=== PATIENT | female | born 1990 | race African-American/Black ===

== ENCOUNTER 2017-12-21 23:58 | Emergency (ER) | payer MEDICAID ==
--- NOTE | 2017-12-22 00:50 | ER Document Report ---
ED General - General Chief Complaint: Probable Seizure Stated Complaint: POSSIBLE SEIZURES,AMS Time Seen by Provider: 12/22/17 00:09 Notes: Patient is a 27-year-old female presents with complaint of possible seizure. She says she went to [employer] to buy any case for her phone. She said she last thing she remembers is looking at the phone cases. She then woke up with the paramedics. Paramedics said that she did appear postictal and that she was confused when they first got to her. Paramedics said there is maybe 1 pertinence who witnessed her on the floor with some tremor but is unclear whether not she was having a true seizure. Patient has never had anything like this happen before. She is otherwise healthy and has no chronic medical problems. No recent infections. Patient denies any chest pain or shortness of breath or headaches before or after the episode. Past Medical History - Social History Smoking Status: Never Smoker Frequency of alcohol use: None Drug Abuse: None Family History: Reviewed & Not Pertinent Patient has suicidal ideation: No Patient has homicidal ideation: No Renal/ Medical History: Denies: Hx Peritoneal Dialysis Review of Systems - Review of Systems Notes: My Normal Review Basic REVIEW OF SYSTEMS: CONSTITUTIONAL : Denies fever, chills, or sweats. Denies recent illness. EENT: Denies eye, ear, throat, or mouth pain or symptoms. Denies nasal or sinus congestion. CARDIOVASCULAR: Denies chest pain. RESPIRATORY: Denies cough, cold, or chest congestion. Denies shortness of breath, difficulty breathing, or wheezing. GASTROINTESTINAL: Denies abdominal pain. Denies nausea, vomiting, or diarrhea. Denies constipation. Last BM: GENITOURINARY: Denies difficulty urinating, painful urination, burning, frequency, or blood in urine. MUSCULOSKELETAL: Denies neck or back pain or joint pain or swelling. SKIN: Denies rash or skin lesions. NEUROLOGICAL: Loss of consciousness with possible seizure. Denies headache. Denies weakness or paralysis or loss of use of either side. Denies problems with gait or speech. Denies sensory or motor loss. ALL OTHER SYSTEMS REVIEWED AND NEGATIVE. Physical Exam - Vital signs Vitals: Temp Pulse Resp BP Pulse Ox 98.8 F 113 H 20 132/101 H 93 12/22/17 00:01 12/22/17 00:01 12/22/17 00:01 12/22/17 00:01 12/22/17 00:01 - Notes Notes: General Appearance: Well nourished, alert, cooperative, no acute distress, no obvious discomfort. Well-appearing. Vitals: reviewed, See vital signs table. Head: no swelling or tenderness to the head Eyes: PERRL, EOMI, Conjuctiva clear Mouth: No decreasd moisture. No tongue biting. Throat: No tonsillar inflammation, No airway obstruction, Neck: Supple, no neck tenderness, No thyromegaly Lungs: No wheezing, No rales, No rhonci, No accessory muscle use, good air exchange bilaterally. Heart: Tachycardic rate, Regular rythm, No murmur, no rub Abdomen: Normal BS, soft, No rigidity, No abdominal tenderness, No guarding, no rebound, no abdominal masses, no organomegaly Extremities: strength 5/5 in all extremities, good pulses in all extremities, no swelling or tenderness in the extremities, no edema. Skin: warm, dry, appropriate color, no rash Neuro: speech clear, oriented x 3, normal affect, responds appropriately to questions. Cranial nerves II through XII are intact. Distal sensation intact. Patient was all extremities without difficulty. Course - Re-evaluation Re-evalutation: 12/22/17 00:49 EKG is reviewed and interpreted by me. EKG shows sinus tachycardia with rate of [address] segment elevation or depression. No ischemic T-wave inversions. DE interval, QRS duration, QTc intervals are within normal range. No old EKG available for comparison. 12/22/17 02:04 She continues to do well and look well and has had no further symptoms. Her initial blood work and CT scan are negative. I will entered the room to reevaluate her but she still having some persistent tachycardia at rest. Tachycardia is mild however is concerning that she had either seizure or possible syncopal episode. If this was a syncopal episode she has persistent tachycardia is a concern that this could be a PE. I have ordered a d-dimer. If negative I am not to concern for PE as patient does not have any chest pain or shortness of breath. If positive we will obtain a CTA of the chest. 12/22/17 04:19 CT of the chest is negative. Patient's heart rate is now in the upper 90s. She looks well and has no neurologic deficits. I talked at length about the possibility of a seizure. This time it is not clear if she had a syncopal episode or seizure. I informed her that being that she did have what sounds to be a postictal state that she most likely did have a seizure. At this time we will hold off on starting antiseizure medications as this is a first-time seizure and she has not had any further recurrence of convulsions. Informed her that we will have her follow-up with the neurologist to do further testing for seizures. Also informed her that she cannot drive until cleared by the neurologist. Patient shows understanding of this and agrees with plan. Patient to return to ER immediately if she has any recurrent episodes of passing out or seizure-like activity, she feels unwell, or if she has any further concerns. Patient agrees with plan will be discharged home. Dictation of this chart was performed using voice recognition software; therefore, there may be some unintended grammatical errors. - Vital Signs Vital signs: Temp Pulse Resp BP Pulse Ox 98.8 F 113 H 15 119/85 100 12/22/17 00:01 12/22/17 00:01 12/22/17 03:01 12/22/17 02:00 12/22/17 03:01 - Laboratory Result Diagrams: 12/22/17 00:45 12/22/17 00:45 Laboratory results interpreted by me: 12/22/17 12/22/17 12/22/17 00:45 00:45 00:49 D-Dimer 0.91 H Total Protein 8.3 H Urine Protein 30 H Urine Blood SMALL H Ur Leukocyte Esterase TRACE H Discharge - Discharge Clinical Impression: Seizure Condition: Good Disposition: HOME, SELF-CARE Additional Instructions: Seizure You have possibly had a seizure. Seizure disorders (epilepsy) of one sort or another affect about one out of 50 people. The seizure occurs because of abnormal electrical activity in the brain. Seizures may be due to drugs and alcohol, strokes, brain injury, or infection. In the most common form of epilepsy, no cause can be found. You will require further evaluation to determine the cause of your seizure, and to determine whether anti-seizure medication is required. This follow-up testing is important, so please call us if you encounter problems with scheduling of tests or appointments. YOU SHOULD NOT DRIVE until released to do so by your physician. The law requires that seizures be reported to the [place] driver's license bureau--a seizure while driving could be catastrophic. Call the doctor if seizures recur, or if you develop new symptoms such as fever, severe headache, stiff neck, confusion or increasing sleepiness, weakness or numbness, or visual problems. Referrals: MEAGAN GIORDANO MD [NO LOCAL MD] - 12/23/17
[2017-12-22 01:01] LABS: ABSOLUTE EOSINOPHILS # (AUTO) 0.1 10^3/uL (0.0-0.6); ABSOLUTE LYMPHOCYTES (AUTO) 2.9 10^3/uL (0.5-4.7); ABSOLUTE MONOCYTES (AUTO) 0.8 10^3/uL (0.1-1.4); ABSOLUTE NEUT (AUTO) 5.4 10^3/uL (1.7-8.2); BASOPHILS % (AUTO) 0.4 % (0-2); EOSINOPHILS % (AUTO) 1.4 % (0-6); HEMATOCRIT 38.4 % (36.0-47.0); HEMOGLOBIN 13.1 g/dL (12.0-15.5); LYMPHOCYTES % (AUTO) 31.2 % (13-45); MEAN CORPUSCULAR HEMOGLOBIN 29.6 pg (27.0-33.4); MEAN CORPUSCULAR HGB CONC 34.1 g/dL (32.0-36.0); MEAN CORPUSCULAR VOLUME 87 fl (80-97); MONOCYTES % (AUTO) 8.3 % (3-13); PLATELET COUNT 297 10^3/uL (150-450); RED BLOOD COUNT 4.42 10^6/uL (3.72-5.28); RED CELL DISTRIBUTION WIDTH 13.3 % (11.5-14.0); SEGMENTED NEUTROPHILS % (AUTO) 58.7 % (42-78); TOTAL CELLS COUNTED % (AUTO) 100 %; WHITE BLOOD COUNT 9.2 10^3/uL (4.0-10.5)
[2017-12-22 01:13] LABS: APPEARANCE,URINE CLEAR; BILIRUBIN,URINE NEGATIVE (NEGATIVE); COLOR,URINE STRAW; GLUCOSE, URINE NEGATIVE (NEGATIVE); KETONES,URINE NEGATIVE (NEGATIVE); LEUKOCYTE ESTERASE,URINE TRACE (NEGATIVE); NITRITE,URINE NEGATIVE (NEGATIVE); PROTEIN,URINE 30 mg/dL (NEGATIVE); URINE SPECIFIC GRAVITY 1.014; UROBILINOGEN,URINE NEGATIVE mg/dL (<2.0)
[2017-12-22 01:19] LABS: ALANINE AMINOTRANSFERASE 44 U/L (9-52); ALBUMIN 4.4 g/dL (3.5-5.0); ALKALINE PHOSPHATASE 104 U/L (38-126); ANION GAP 10 (5-19); ASPARTATE AMINO TRANSFERASE 31 U/L (14-36); BILIRUBIN,DIRECT 0.3 mg/dL (0.0-0.4); BILIRUBIN,TOTAL 0.3 mg/dL (0.2-1.3); BLOOD UREA NITROGEN 9 mg/dL (7-20); CALCIUM 9.5 mg/dL (8.4-10.2); CARBON DIOXIDE 28 mmol/L (22-30); CHLORIDE 105 mmol/L (98-107); GLUCOSE 100 mg/dL (75-110); TOTAL PROTEIN 8.3 g/dL (6.3-8.2)
--- NOTE | 2017-12-22 01:43 | RADIOLOGY REPORT (SQ) ---
EXAM DESCRIPTION: CT HEAD WITHOUT IV CONTRAST COMPLETED DATE/TME: 12/22/2017 00:15 CLINICAL HISTORY: 27 years Female, syncope vs. new onset seizure COMPARISON: None. TECHNIQUE: No contrast. Coronal and sagittal reformat. This exam was performed according to our departmental dose-optimization program, which includes automated exposure control, adjustment of the mA and/or kV according to patient size and/or use of iterative reconstruction technique. FINDINGS: No hemorrhage or infarct. No mass, mass effect, or midline shift. Brain and extra-axial structures appear intact. IMPRESSION: Normal CT of the head.
[2017-12-22] MEDS ORDERED: NORMAL SALINE 1000 ML 1,000 ML IV ONE (02:05)
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
[2017-12-22 04:19] VITALS: BP 128/91
--- NOTE | 2017-12-22 08:11 | EKG REPORT ---
SEVERITY:- BORDERLINE ECG - SINUS TACHYCARDIA PROBABLE LEFT ATRIAL ABNORMALITY : Confirmed by: Herman Mcdaniels MD 22-Dec-2017 08:11:25
== END 2017-12-22 04:24 | disposition home or self-care (01) ==
LOC: ER 23:58
DX: R56.9 Unspecified convulsions (principal); R00.0 Tachycardia, unspecified
CPT/HCPCS: 93005; 99285; 96360; 36415; 84703; 85025; 80053; 81001; 85379; 70450; 71275; 93010; J7030

== ENCOUNTER 2018-09-20 08:31 | Emergency (ER) | payer MEDICAID ==
[2018-09-20 09:35] LABS: ABSOLUTE EOSINOPHILS # (AUTO) 0.1 10^3/uL (0.0-0.6); ABSOLUTE LYMPHOCYTES (AUTO) 2.5 10^3/uL (0.5-4.7); ABSOLUTE MONOCYTES (AUTO) 0.4 10^3/uL (0.1-1.4); ABSOLUTE NEUT (AUTO) 3.4 10^3/uL (1.7-8.2); BASOPHILS % (AUTO) 0.7 % (0-2); EOSINOPHILS % (AUTO) 2.3 % (0-6); HEMATOCRIT 39.3 % (36.0-47.0); HEMOGLOBIN 13.2 g/dL (12.0-15.5); MEAN CORPUSCULAR HEMOGLOBIN 29.3 pg (27.0-33.4); MEAN CORPUSCULAR HGB CONC 33.7 g/dL (32.0-36.0); MEAN CORPUSCULAR VOLUME 87 fl (80-97); MONOCYTES % (AUTO) 6.7 % (3-13); PLATELET COUNT 340 10^3/uL (150-450); RED BLOOD COUNT 4.52 10^6/uL (3.72-5.28); RED CELL DISTRIBUTION WIDTH 12.9 % (11.5-14.0); SEGMENTED NEUTROPHILS % (AUTO) 52.3 % (42-78); TOTAL CELLS COUNTED % (AUTO) 100 %; WHITE BLOOD COUNT 6.5 10^3/uL (4.0-10.5)
[2018-09-20 09:48] LABS: ALANINE AMINOTRANSFERASE 27 U/L (9-52); ALBUMIN 4.7 g/dL (3.5-5.0); ALKALINE PHOSPHATASE 115 U/L (38-126); ANION GAP 13 (5-19); ASPARTATE AMINO TRANSFERASE 25 U/L (14-36); BILIRUBIN,DIRECT 0.2 mg/dL (0.0-0.4); BILIRUBIN,TOTAL 0.3 mg/dL (0.2-1.3); BLOOD UREA NITROGEN 10 mg/dL (7-20); CALCIUM 9.3 mg/dL (8.4-10.2); CARBON DIOXIDE 24 mmol/L (22-30); CHLORIDE 106 mmol/L (98-107); CREATINE KINASE 161 U/L (30-135); GLUCOSE 114 mg/dL (75-110); SODIUM 142.6 mmol/L (137-145); TOTAL PROTEIN 9.2 g/dL (6.3-8.2)
[2018-09-20 11:17] VITALS: BP 129/101
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
== END 2018-09-20 11:22 | disposition home or self-care (01) ==
LOC: ER 08:31
DX: R56.9 Unspecified convulsions (principal); R51 Headache
CPT/HCPCS: 36415; 80053; 82550; 83605; 84703; 85025; 99284